=== PATIENT | female | born 1970 | race American Indian/Alaskan Native ===

== ENCOUNTER 2018-01-20 20:38 | Emergency (ER) | payer MEDICARE ==
[2018-01-20 21:18] VITALS: BP 138/78
--- NOTE | 2018-01-21 02:00 | Emergency Department Report ---
ED Medical Clearance HPI - General Chief complaint: Medical Clearance Stated complaint: EXPOSED TO GAS Time Seen by Provider: 01/21/18 01:56 Source: patient Mode of arrival: Ambulatory - History of Present Illness Initial comments: 47-year-old -[place] female with a past medical history seizures, bipolar comes in concern for exposure to a gas leak that she's been dealing with since September. Patient reports that she had headache and dizziness and nausea but all has resolved since they had been removed from the house today. Patient reports that she does not stay at the house permanently as she is from [place] but has been down several times to visit her mother. -: month(s) (4) Reason for Medical Clearance: other (natural gas exposure) Allergies/Adverse reactions: Allergies Allergy/AdvReac Type Severity Reaction Status Date / Time lisdexamfetamine Allergy Unknown Verified 01/20/18 21:24 lisinopril Allergy Unknown Verified 01/20/18 21:24 shellfish derived Allergy Unknown Verified 01/20/18 21:24 ED Review of Systems ROS: Stated complaint: EXPOSED TO GAS Other details as noted in HPI Comment: All other systems reviewed and negative ED Past Medical Hx - Past Medical History Hx Hypertension: Yes Hx GERD: Yes Hx Psychiatric Treatment: Yes (bipolar) - Surgical History Past Surgical History?: No Additional Surgical History: pre-ca cervix removed,tubiligation - Social History Smoking Status: Never Smoker Substance Use Type: Alcohol ED Physical Exam - General Limitations: No Limitations General appearance: alert, in no apparent distress - Head Head exam: Present: atraumatic, normocephalic - Eye Eye exam: Present: EOMI - ENT ENT exam: Present: mucous membranes moist - Neck Neck exam: Present: full ROM. Absent: lymphadenopathy - Respiratory Respiratory exam: Present: normal lung sounds bilaterally. Absent: respiratory distress - Cardiovascular Cardiovascular Exam: Present: regular rate, normal rhythm. Absent: systolic murmur, diastolic murmur, rubs, gallop - GI/Abdominal GI/Abdominal exam: Present: soft, normal bowel sounds - Neurological Exam Neurological exam: Present: alert, oriented X3, normal gait - Psychiatric Psychiatric exam: Present: normal affect, normal mood - Skin Skin exam: Present: warm, dry, intact, normal color. Absent: rash ED Course Vital Signs 01/20/18 21:12 Temperature 98.2 F Pulse Rate 79 Respiratory 18 Rate Blood Pressure 138/78 O2 Sat by Pulse 99 Oximetry ED Medical Decision Making - Medical Decision Making Patient has been evaluated by this provider in fast track. Poison control has been notified and their recommendation is to: Stay out of the house until cleared and repaired, treat headache with Tylenol, there is no long-term effects to being exposed to natural gas. They recommend carbon monoxide detection monitors in the house. Fresh air. Instructed great -grandmother to notify poison control at [phone]. ED Disposition Clinical Impression: Exposure to natural gas Disposition: DC-01 TO HOME OR SELFCARE Is pt being admited?: No Does the pt Need Aspirin: No Condition: Stable Additional Instructions: Please avoid exposure to natural gas. I recommend carbon monoxide detections devices in the home. There is no long-term effects of being exposed to natural gas. Referrals: PRIMARY CARE, [Primary Care Provider] - 3-5 Days Forms: Accompanied Note, Work/School Release Form(ED)
== END 2018-01-21 02:30 | disposition home or self-care (01) ==
LOC: ED 20:38
DX: Z77.098 Contact with and (suspected) exposure to other hazardous, chiefly nonmedicinal, chemicals (principal); I10 Essential (primary) hypertension; K21.9 Gastro-esophageal reflux disease without esophagitis; F31.9 Bipolar disorder, unspecified; R51 Headache; Z98.51 Tubal ligation status; Z91.013 Allergy to seafood; Z88.8 Allergy status to other drugs, medicaments and biological substances
CPT/HCPCS: 99282